=== PATIENT | female | born 1975 | race Caucasian/White ===

== ENCOUNTER → 2017-02-20 | Outpatient (CLI) | payer OTHER ==
--- NOTE | 2017-02-22 10:35 | MM ---
Reason for exam: additional evaluation requested from prior study. Last mammogram was performed 1 year ago. History: Family history of breast cancer in paternal grandmother at age 50. Reductions of both breasts, 2000. Taking hormonal contraceptives for 7 years beginning at age 32. Physical Findings: Nurse did not find any significant physical abnormalities on exam. MG 3D Diag Mammo W/Cad ANISA Bilateral CC and MLO view(s) were taken. Prior study comparison: March 02, 2016, bilateral MG 3d screening mammo w/cad. January 04, 2015, bilateral MG screening mammo w CAD. There are scattered fibroglandular densities. Stable benign calcifications. No significant new findings when compared with previous films. These results were verbally communicated with the patient and result sheet given to the patient on 02/20/17. ASSESSMENT: Incomplete: need additional imaging evaluation, BI-RAD 0 RECOMMENDATION: Ultrasound of the left breast. Manage patient on a clinical basis.
--- NOTE | 2017-02-22 10:36 | USB ---
Reason for exam: additional evaluation requested from abnormal screening. History: Family history of breast cancer in paternal grandmother at age 50. Reductions of both breasts, 2000. Taking hormonal contraceptives for 7 years beginning at age 32. US Breast LT Left breast ultrasound includes all four quadrants, the retroareolar region and axilla. Finding demonstrate no cystic or solid lesion seen. These results were verbally communicated with the patient and result sheet given to the patient on 02/20/17. ASSESSMENT: Negative, BI-RAD 1 RECOMMENDATION: Routine screening mammogram of both breasts in 1 year. Manage patient on a clinical basis.
== END | disposition home or self-care (01) ==
LOC: RADMAMWWP 09:35
PROVIDERS: ATTEND Surgery
DX: N64.4 Mastodynia (principal); N65.1 Disproportion of reconstructed breast; R92.8 Other abnormal and inconclusive findings on diagnostic imaging of breast; Z98.890 Other specified postprocedural states
CPT/HCPCS: 76641; G0204; G0279

== ENCOUNTER → 2018-03-18 | Outpatient (CLI) | payer OTHER ==
--- NOTE | 2018-03-18 12:02 | US ---
EXAMINATION TYPE: US pelvis complete transvag DATE OF EXAM: 03/18/2018 COMPARISON: NONE CLINICAL HISTORY: Z97.5 Presence of (intrauterine) contraceptive. TECHNIQUE: Transvaginal (TV) and Transabdominal (TA) . Transvaginal sonographic images of the pelv is were acquired. Transabdominal sonographic images were medically necessary to better assess the f ollowing anatomy: Uterus Date of LMP: no periods due to IUD EXAM MEASUREMENTS: Uterus: 13.8 x 8.4 x 8.7 cm Endometrial Stripe: unable to visualized due to large fibroid Right Ovary: 3.0 x 2.7 x 2.6 cm Left Ovary: 3.7 x 1.4 x 1.6 cm 1. Uterus: 8.1 x 6.6 x 7.9cm posterior uterine fibroid appears to be pushing IUD anterior, second pe dunculated fibroid measures 3.2 x 2.8 x 2.8cm 2. Endometrium: unable to visualized due to large fibroid, unable to ascertain whether IUD is in endo metrium or sitting anterior to by ultrasound 3. Right Ovary: wnl 4. Left Ovary: wnl 5. Bilateral Adnexa: wnl 6. Posterior cul-de-sac: wnl IMPRESSION: 1. Large uterine fibroid. Second smaller pedunculated uterine fibroid may be present. 2. Echogenic shadow within the anterior uterus with posterior shadowing can be compatible with the howard musa's reported IUD.
== END ==
LOC: RADUSWWP 10:32
PROVIDERS: ATTEND Obstetrics & Gynecology
DX: D25.9 Leiomyoma of uterus, unspecified (principal); Z97.5 Presence of (intrauterine) contraceptive device
CPT/HCPCS: 76830; 76856

== ENCOUNTER → 2018-04-08 | Outpatient (CLI) | payer MEDICAID ==
[2018-04-08 13:39] LABS: Basophils % (A) 0 %; Eosinophils # (A) 0.1 k/uL (0-0.7); Eosinophils % (A) 1 %; HCT 38.2 % (34.0-46.0); Lymphocytes # (A) 2.3 k/uL (1.0-4.8); Lymphocytes % (A) 20 %; MCH 27.7 pg (25.0-35.0); MCV 81.4 fL (80.0-100.0); Mean Platelet Volume 6.2; Monocytes # (A) 0.4 k/uL (0-1.0); Monocytes % (A) 3 %; Neutrophils # (A) 8.8 k/uL (1.3-7.7); Neutrophils % (A) 75 %; Platelet Count 389 k/uL (150-450); RBC 4.69 m/uL (3.80-5.40); RDW 13.2 % (11.5-15.5); WBC 11.8 k/uL (3.8-10.6)
== END | disposition home or self-care (01) ==
LOC: LABPAT 12:33
PROVIDERS: ATTEND Obstetrics & Gynecology
DX: Z01.812 Encounter for preprocedural laboratory examination (principal)
CPT/HCPCS: 36415; 85025

== ENCOUNTER 2018-04-11 06:08 | Day surgery (SDC) | payer MEDICAID, OTHER ==
[2018-04-09 09:17] VITALS: BMI 34.2
[~2018-04-11 06:08] MED LIST: Pre Op ABX Message 1 EACH MISC MISCELLANE ONE
[2018-04-11 06:42] VITALS: RESP 16
[2018-04-11] MEDS ORDERED: LACTATED RINGERS 1,000 ML IV ONE (07:01)
[2018-04-11] MEDS ORDERED: ONDANSETRON 4 MG/2 ML VIAL IVP ONE (07:03)
[2018-04-11] MEDS ORDERED: DEXAMETHASONE SOD PHOSPHATE 10 MG/ML 1 ML VIAL IV ONE (07:04)
[2018-04-11] MEDS ORDERED: MIDAZOLAM 2 MG/2 ML VIAL IV ONE ×2 (07:04)
[2018-04-11] MEDS ORDERED: KETOROLAC 30 MG/ML 1 ML VIAL ONE (07:30)
[2018-04-11] MEDS ORDERED: LIDOCAINE 1% INJ 10MG/ML (20 ML MDV) ONE (07:30)
[2018-04-11] MEDS ORDERED: fentaNYL (PF) 50 MCG/ML 2 ML AMP ONE (07:30)
[2018-04-11] MEDS ORDERED: MIDAZOLAM 2 MG/2 ML VIAL ONE (07:30)
[2018-04-11] MEDS ORDERED: PROPOFOL 10 MG/ML 20 ML VIAL IV ONE (07:30)
--- NOTE | 2018-04-11 08:13 | P.HPOB ---
History of Present Illness H&P Date: 04/11/18 Chief Complaint: Retained IUD family planning Janine is a 42-year-old female who has a Mirena IUD. The IUD has gone so far up into her uterine cavity that the strings are no longer visible and cannot be identified. Attempts were made in the office to remove it were unsuccessful. Ultrasound did verify that the IUD was in place and that she has a very large fibroid in her uterus. It is also noted that her uterus is slightly bigger than what would normally be recommended for the IUD but is controlling her menses very well and she would defer to continue with the IUD understanding there is an increased risk of failure and resultant . Past Medical History Past Medical History: Asthma Additional Past Medical History / Comment(s): seasonal allergies, menieres rt ear, exercise induced asthma, hx anemia History of Any Multi-Drug Resistant Organisms: None Reported Additional Past Surgical History / Comment(s): manjinder. breast reduction Past Anesthesia/Blood Transfusion Reactions: Postoperative Nausea & Vomiting ( PONV) Smoking Status: Never smoker - Past Family History Mother Family Medical History: No Reported History Medications and Allergies Home Medications Medication Instructions Recorded Confirmed Type Albuterol Inhaler [Ventolin Hfa 1 - 2 puff INHALATION RT-Q6H PRN 04/09/18 History Inhaler] Cetirizine HCl [Zyrtec] 10 mg PO DAILY 04/09/18 04/11/18 History L.acidoph,Paracasei, B.lactis 1 each PO DAILY 04/09/18 04/11/18 History [Probiotic] Triamterene-Hctz 37.5-25Mg 1 cap PO DAILY 04/09/18 04/11/18 History [Dyazide 37.5-25 Capsule] Vitamin B Complex 1 each PO DAILY 04/09/18 04/11/18 History Ibuprofen [Motrin] 600 mg PO Q6HR PRN #30 tab 04/11/18 Rx Allergies Allergy/AdvReac Type Severity Reaction Status Date / Time No Known Allergies Allergy Verified 04/11/18 06:59 Exam Osteopathic Statement: *. No significant issues noted on an osteopathic structural exam other than those noted in the History and Physical/Consult. Vital Signs Temp Pulse Resp BP Pulse Ox 04/11/18 06:40 99.4 F 78 16 139/73 98 Intake and Output 04/10/18 04/11/18 04/11/18 22:59 06:59 14:59 Intake Total 900 Output Total 5 Balance 895 Intake: IV 900 Output: Estimated Blood Loss 5 - OBG Physical Exam Breast: both: normal (no masses) Abdomen: bowel sounds normal, no diffuse tenderness, no bruit present, no guarding noted, no hepatomegaly, no splenomegaly, no mass Vulva: both: normal Vagina: normal moisture, no discharge Cervix: no lesion, no discharge Uterus: enlarged, nodular
--- NOTE | 2018-04-11 08:15 | P.OP ---
Date of Procedure: 04/11/18 Preoperative Diagnosis: Retained IUD with family planning Postoperative Diagnosis: Same Procedure(s) Performed: Exam under anesthesia with hysteroscopy and removal of IUD and replacement with new kyleena iud Anesthesia: MAC Surgeon: Tad Aguirre Estimated Blood Loss (ml): 2 Pathology: none sent Condition: stable Disposition: same day Operative Findings: Grossly enlarged uterus Description of Procedure: Patient was taken to the operating suite where a general anesthetic was found be adequate. She was prepped and draped in normal sterile fashion placed in dorsal lithotomy position. Initially weighted speculum was inserted into the vagina and the anterior lip cervix was identified and grasped with an Allis clamp. Cervix was then dilated. Using a long hemostat attempt made to grasp the strings however we were unable to find the strings or feel the IUD. Therefore hysteroscope was inserted due to and anterior fibroid the IUD was actually tucked behind the fibroid well to the back of the uterus, therefore once wheeled visualize it. Using a polyp forcep to go into the uterus at the correct angle and grasp and remove the IUD. Once it was removed nuclear currently IUD was placed after sounding to approximately 11 cm. All instruments were then removed following trimming of the strings 2 cm. Sponge, lap, needle counts were all correct 2. Patient was then taken to the recovery room in stable and satisfactory condition. Plan - Discharge Summary New Discharge Prescriptions: New Ibuprofen [Motrin] 600 mg PO Q6HR PRN #30 tab PRN Reason: Pain No Action Triamterene-Hctz 37.5-25Mg [Dyazide 37.5-25 Capsule] 1 cap PO DAILY Vitamin B Complex 1 each PO DAILY L.acidoph,Paracasei, B.lactis [Probiotic] 1 each PO DAILY Cetirizine HCl [Zyrtec] 10 mg PO DAILY Albuterol Inhaler [Ventolin Hfa Inhaler] 1 - 2 puff INHALATION RT-Q6H PRN PRN Reason: Dyspnea Discharge Medication List Albuterol Inhaler [Ventolin Hfa Inhaler] 1 - 2 puff INHALATION RT-Q6H PRN [History] Cetirizine HCl [Zyrtec] 10 mg PO DAILY 04/09/18 [History] L.acidoph,Paracasei, B.lactis [Probiotic] 1 each PO DAILY 04/09/18 [History] Triamterene-Hctz 37.5-25Mg [Dyazide 37.5-25 Capsule] 1 cap PO DAILY 04/09/18 [ History] Vitamin B Complex 1 each PO DAILY 04/09/18 [History] Ibuprofen [Motrin] 600 mg PO Q6HR PRN #30 tab 04/11/18 [Rx] Follow up Appointment(s)/Referral(s): Tad Aguirre DO [Doctor of Osteopathic Medicine] - 2 Weeks Activity/Diet/Wound Care/Special Instructions: Pelvic rest today and limited activity today due to anesthesia Discharge Disposition: HOME SELF-CARE
[2018-04-11 08:16] VITALS: TEMP 97.1
[2018-04-11 09:29] VITALS: BP 115/69; PULSE 60
== END 2018-04-11 09:53 | disposition home or self-care (01) ==
LOC: OR 06:08
PROVIDERS: ATTEND Obstetrics & Gynecology
DX: T83.32XA Displacement of intrauterine contraceptive device, initial encounter (principal); I10 Essential (primary) hypertension; J45.990 Exercise induced bronchospasm; Z79.899 Other long term (current) drug therapy
CPT/HCPCS: 81025; 58300; 58562; J2250; J1100; J2405; J2001; J3010; J1885; J2704

== ENCOUNTER → 2018-06-03 | Outpatient (CLI) | payer MEDICAID ==
--- NOTE | 2018-06-05 09:26 | MM ---
Reason for exam: screening (asymptomatic). Last mammogram was performed 1 year and 3 months ago. History: Family history of breast cancer in paternal grandmother at age 50. Reductions of both breasts, 2001. Taking hormonal contraceptives for 7 years beginning at age 32. Physical Findings: A clinical breast exam by your physician is recommended on an annual basis and results should be correlated with mammographic findings. MG 3D Screening Mammo W/Cad Bilateral CC and MLO view(s) were taken. Prior study comparison: February 20, 2017, bilateral MG 3d diag mammo w/cad ANISA. March 02, 2016, bilateral MG 3d screening mammo w/cad. There are scattered fibroglandular densities. No significant changes when compared with prior studies. ASSESSMENT: Benign, BI-RAD 2 RECOMMENDATION: Routine screening mammogram of both breasts in 1 year.
== END | disposition home or self-care (01) ==
LOC: RADMAMWWP 11:14
PROVIDERS: ATTEND Obstetrics & Gynecology
DX: Z12.31 Encounter for screening mammogram for malignant neoplasm of breast (principal)
CPT/HCPCS: 77063; 77067

== ENCOUNTER → 2018-09-03 | Outpatient (CLI) | payer MEDICAID ==
--- NOTE | 2018-09-03 15:51 | US ---
EXAMINATION TYPE: US pelvis complete transvag DATE OF EXAM: 09/03/2018 COMPARISON: US 03/18/2018 CLINICAL HISTORY: Z97.5 IUD PLACEMENT,N92.6 IRREG MENSES. Patient had an IUD surgically removed in [facility] due to improper location due to fibroid TECHNIQUE: . Transabdominal sonographic images of the pelvis were acquired. Transvaginal sonographi c images were medically necessary to better assess the following anatomy: Endometrium Date of LMP: About 2.5 weeks ago EXAM MEASUREMENTS: Uterus: 10.0 x 7.8 x 8.1 cm Endometrial Stripe: Not visualized due to large fibroid Right Ovary: 2.7 x 1.2 x 2.0 cm Left Ovary: 3.7 x 2.8 x 4.0 cm 1. Uterus: Anteverted, multiple nabothian cysts visualized. Two fibroids visualized. The largest m easuring 9.1 x 7.0 x 7.3 cm. IUD is visualized anterior to the largest fibroid and appears to be in t he myometrium. This is difficult to evaluate transvaginally due to fibroid. 2. Endometrium: Not visualized 3. Right Ovary: wnl 4. Left Ovary: Cystic area visualized measuring 1.5 x 1.5 x 1.8 cm 5. Bilateral Adnexa: wnl 6. Posterior cul-de-sac: wnl IMPRESSION: 1. IUD within the endometrial canal. 2. Large posterior uterine fibroid.
== END | disposition home or self-care (01) ==
LOC: RADUSWWP 12:47
PROVIDERS: ATTEND Obstetrics & Gynecology
DX: D25.9 Leiomyoma of uterus, unspecified (principal); Z97.5 Presence of (intrauterine) contraceptive device
CPT/HCPCS: 76830; 76856

== ENCOUNTER → 2020-04-29 | Outpatient (CLI) | payer MEDICAID ==
[2020-04-29 09:29] LABS: Basophils % (A) 1 %; Eosinophils # (A) 0.2 k/uL (0-0.7); Eosinophils % (A) 2 %; HCT 43.1 % (34.0-46.0); Lymphocytes % (A) 21 %; MCH 27.3 pg (25.0-35.0); MCHC 32.5 g/dL (31.0-37.0); MCV 83.9 fL (80.0-100.0); Mean Platelet Volume 6.4; Monocytes # (A) 0.4 k/uL (0-1.0); Monocytes % (A) 4 %; Neutrophils # (A) 6.9 k/uL (1.3-7.7); Neutrophils % (A) 71 %; Platelet Count 365 k/uL (150-450); RBC 5.13 m/uL (3.80-5.40); RDW 12.8 % (11.5-15.5); WBC 9.7 k/uL (3.8-10.6)
[2020-04-29 17:10] LABS: African American GFR (CKD) 103.2 (60.0-200.0); Albumin 4.4 g/dL (3.80-4.90); Albumin/Globulin Ratio 1.57 (1.60-3.17); Anion Gap 8.5 mmol/L (4.00-12.00); BUN/Creat Ratio 13.75 Ratio (12.00-20.00); Calcium 9.9 mg/dL (8.7-10.3); Carbon Dioxide 26.5 mmol/L (21.6-31.8); Chol/HDL Ratio 2.87; Globulin 2.8 g/dL (1.6-3.3); LDL Cholesterol,Calculated 88.2 mg/dL (0.0-131.0); Potassium 4.2 mmol/L (3.5-5.5); Total Bilirubin 0.6 mg/dL (0.2-1.2); Total Protein 7.2 g/dL (6.2-8.2); Uric Acid 6.8 mg/dL (2.9-7.7); VLDL Calculation 25.8 mg/dL (5.00-40.00)
== END | disposition home or self-care (01) ==
LOC: LABWHC1 08:43
PROVIDERS: ATTEND Otolaryngology
DX: Z00.00 Encounter for general adult medical examination without abnormal findings (principal); H90.3 Sensorineural hearing loss, bilateral; H81.03 Meniere's disease, bilateral
CPT/HCPCS: 36415; 80053; 80061; 82306; 84550; 85025

== ENCOUNTER → 2020-09-17 | Outpatient (CLI) | payer MEDICAID ==
--- NOTE | 2020-09-20 14:00 | MM ---
Reason for exam: screening (asymptomatic). Last mammogram was performed 2 years and 3 months ago. History: Family history of breast cancer in paternal grandmother at age 50. Reductions of both breasts, 2001. Taking hormonal contraceptives for 7 years beginning at age 32. Physical Findings: A clinical breast exam by your physician is recommended on an annual basis and results should be correlated with mammographic findings. MG 3D Screening Mammo W/Cad Bilateral CC and MLO view(s) were taken. Prior study comparison: June 03, 2018, bilateral MG 3d screening mammo w/cad. February 20, 2017, bilateral MG 3d diag mammo w/cad ANISA. There are scattered fibroglandular densities. There are benign appearing regional, round calcifications bilaterally. Asymmetric breast tissue left axilla, stable. There is no discrete abnormality. ASSESSMENT: Benign, BI-RAD 2 RECOMMENDATION: Routine screening mammogram of both breasts in 1 year.
== END | disposition home or self-care (01) ==
LOC: RADMAMWWP 11:41
PROVIDERS: ATTEND Family Medicine
DX: Z12.31 Encounter for screening mammogram for malignant neoplasm of breast (principal)
CPT/HCPCS: 77063; 77067

== ENCOUNTER → 2020-11-17 | Outpatient (CLI) | payer MEDICAID ==
[2020-11-17 12:36] LABS: C Reactive Protein 0.7 mg/dL (0.0-0.8)
== END | disposition home or self-care (01) ==
LOC: LABWHC1 07:19
PROVIDERS: ATTEND Family Medicine
DX: M25.549 Pain in joints of unspecified hand (principal)
CPT/HCPCS: 36415; 85652; 86038; 86140; 86431

== ENCOUNTER → 2021-03-16 | Outpatient (CLI) | payer MEDICAID ==
[2021-03-16 14:40] VITALS: BMI 32.9
== END ==
LOC: DBWHC3 09:57
PROVIDERS: ATTEND Family Medicine
DX: E66.3 Overweight (principal); Z68.33 Body mass index [BMI] 33.0-33.9, adult
CPT/HCPCS: 97802

== ENCOUNTER → 2021-07-06 | Outpatient (CLI) | payer MEDICAID ==
[2021-07-06 10:48] LABS: HCT 41.5 % (37.2-46.3); HGB 13.4 g/dL (12.0-15.0); MCH 27.2 pg (27.0-32.0); MCHC 32.3 g/dL (32.0-37.0); MCV 84.2 fL (80.0-97.0); Mean Platelet Volume 8.9 fL (9.5-12.2); Platelet Count 374 X 10*3/uL (140-440); RBC 4.93 X 10*6/uL (4.10-5.20); RDW 12.4 % (11.5-14.5); WBC 8.14 X 10*3/uL (4.50-10.00)
[2021-07-07 14:54] LABS: Albumin 4.5 g/dL (3.8-4.9); Albumin/Globulin Ratio 1.65 (1.60-3.17); Anion Gap 14.8 mmol/L (4.00-12.00); BUN/Creat Ratio 32.73 Ratio (12.00-20.00); Blood Urea Nitrogen 16.2 mg/dL (9.0-27.0); Calcium 9.2 mg/dL (8.7-10.3); Carbon Dioxide 22.3 mmol/L (21.6-31.8); Chol/HDL Ratio 2.72 Ratio; Globulin 2.7 g/dL (1.6-3.3); Non-African American GFR(CKD) 116.5 (60.0-200.0); Potassium 4.4 mmol/L (3.5-5.5); Total Bilirubin 0.4 mg/dL (0.30-1.20); Total Protein 7.2 g/dL (6.2-8.2)
== END | disposition home or self-care (01) ==
LOC: LABWHC1 07:31
PROVIDERS: ATTEND Family Medicine
DX: Z00.01 Encounter for general adult medical examination with abnormal findings (principal); E55.9 Vitamin D deficiency, unspecified
CPT/HCPCS: 36415; 80053; 80061; 82306; 85027

== ENCOUNTER → 2021-09-19 | Outpatient (CLI) | payer MEDICAID ==
[2021-09-19 18:48] LABS: Basophils # (A) 0.03 X 10*3/uL (0.00-0.10); Basophils % (A) 0.3 %; Eosinophils # (A) 0.05 X 10*3/uL (0.04-0.35); Eosinophils % (A) 0.5 %; HCT 42.1 % (37.2-46.3); Lymphocytes # (A) 0.98 X 10*3/uL (0.90-5.00); Lymphocytes % (A) 10.2 %; MCH 26.9 pg (27.0-32.0); MCHC 30.9 g/dL (32.0-37.0); Mean Platelet Volume 9.2 fL (9.5-12.2); Monocytes # (A) 0.54 X 10*3/uL (0.20-1.00); Monocytes % (A) 5.6 %; Neutrophils # (A) 7.98 X 10*3/uL (1.80-7.70); Neutrophils % (A) 83.1 %; Platelet Count 331 X 10*3/uL (140-440); RBC 4.84 X 10*6/uL (4.10-5.20); RDW 12.7 % (11.5-14.5); WBC 9.61 X 10*3/uL (4.50-10.00)
[2021-09-19 21:40] LABS: Erythrocyte Sedimentation Rate 26 mm/Hr (0-20)
[2021-09-20 05:18] LABS: BUN/Creat Ratio 23.77 Ratio (12.00-20.00); Globulin 2.9 g/dL (1.6-3.3)
[2021-09-20 05:19] LABS: African American GFR (CKD) 114.1 (60.0-200.0); Albumin 4.4 g/dL (3.8-4.9); Albumin/Globulin Ratio 1.52 (1.60-3.17); Anion Gap 15.5 mmol/L (10.00-18.00); Blood Urea Nitrogen 17.4 mg/dL (9.0-27.0); C Reactive Protein 1.1 mg/dL (0.00-0.80); Calcium 9.7 mg/dL (8.7-10.3); Carbon Dioxide 20.1 mmol/L (20.0-27.5); Non-African American GFR(CKD) 98.4 (60.0-200.0); Potassium 4.1 mmol/L (3.5-5.5); Total Bilirubin 0.3 mg/dL (0.30-1.20); Total Protein 7.3 g/dL (6.2-8.2)
[2021-09-20 09:25] LABS: Angiotensin-1 Converting Enz. 40 U/L (8-52)
== END | disposition home or self-care (01) ==
LOC: LABWHC1 11:40
PROVIDERS: ATTEND Internal Medicine Rheumatology
DX: M79.643 Pain in unspecified hand (principal); M25.539 Pain in unspecified wrist; M25.569 Pain in unspecified knee
CPT/HCPCS: 36415; 80053; 82164; 82550; 83520; 85025; 85652; 86140; 86747; 86803

== ENCOUNTER → 2021-09-19 | Outpatient (CLI) | payer MEDICAID ==
--- NOTE | 2021-09-21 12:02 | MM ---
Reason for exam: screening (asymptomatic). Last mammogram was performed 1 year ago. History: Family history of breast cancer in paternal grandmother at age 50. Reductions of both breasts, 2001. Taking hormonal contraceptives for 7 years beginning at age 32. Physical Findings: A clinical breast exam by your physician is recommended on an annual basis and results should be correlated with mammographic findings. MG 3D Screening Mammo W/Cad Bilateral CC and MLO view(s) were taken. XCCL view(s) were taken of the left breast. Prior study comparison: September 17, 2020, bilateral MG 3d screening mammo w/cad. June 03, 2018, bilateral MG 3d screening mammo w/cad. There are scattered fibroglandular densities. Dermal calcifications on the right are unchanged. No significant changes when compared with prior studies. ASSESSMENT: Benign, BI-RAD 2 RECOMMENDATION: Routine screening mammogram of both breasts in 1 year.
== END | disposition home or self-care (01) ==
LOC: RADMAMWWP 11:12
PROVIDERS: ATTEND Obstetrics & Gynecology
DX: Z12.31 Encounter for screening mammogram for malignant neoplasm of breast (principal); Z80.3 Family history of malignant neoplasm of breast
CPT/HCPCS: 77063; 77067

== ENCOUNTER → 2022-05-16 | Outpatient (CLI) | payer MEDICAID ==
[2022-05-16 10:53] LABS: HGB 12.6 g/dL (12.0-15.0); MCHC 32.3 g/dL (32.0-37.0); MCV 83.7 fL (80.0-97.0); Mean Platelet Volume 9.4 fL (9.5-12.2); NRBC Per 100 WBC 0 /100 WBCS (0.0-0.0); Platelet Count 428 X 10*3/uL (140-440); RBC 4.66 X 10*6/uL (4.10-5.20); RDW 12.8 % (11.5-14.5); WBC 9.74 X 10*3/uL (4.50-10.00)
[2022-05-16 15:13] LABS: ALT 18 U/L (8-44); AST 26 U/L (13-35); African American GFR (CKD) 118.8 (60.0-200.0); Albumin 4.2 g/dL (3.8-4.9); Albumin/Globulin Ratio 1.38 (1.60-3.17); Alkaline Phosphatase 82 U/L (41-126); BUN/Creat Ratio 15.91 Ratio (12.00-20.00); Blood Urea Nitrogen 11.2 mg/dL (9.0-27.0); Calcium 9.3 mg/dL (8.7-10.3); Carbon Dioxide 25.7 mmol/L (20.0-27.5); Chloride 102 mmol/L (96-109); Chol/HDL Ratio 2.45 Ratio; Glucose 83 mg/dL (70-110); Non-African American GFR(CKD) 102.5 (60.0-200.0); Potassium 3.7 mmol/L (3.5-5.5); Sodium 140 mmol/L (135-145); Total Protein 7.2 g/dL (6.2-8.2)
== END | disposition home or self-care (01) ==
LOC: LABWHC1 08:10
PROVIDERS: ATTEND Family Medicine
DX: Z00.01 Encounter for general adult medical examination with abnormal findings (principal); E55.9 Vitamin D deficiency, unspecified; R53.83 Other fatigue
CPT/HCPCS: 36415; 80053; 80061; 82306; 84443; 85027

== ENCOUNTER → 2022-09-20 | Outpatient (CLI) | payer MEDICAID ==
--- NOTE | 2022-09-21 08:29 | MM ---
Reason for Exam: Screening (asymptomatic). Last screening mammogram was performed 12 month(s) ago. Patient History: Menarche at age 11. First Full-Term at age 29. Late child-bearing (after 30). Perimenopausal. Currently using Hormonal Contraceptives, beginning at age 32 for 7 years. 2000, Bilateral Reduction. Paternal grandmother had breast cancer, age 50. Risk Values: Sandra 5 year model risk: 1.2%. NCI Lifetime model risk: 12.7%. Prior Study Comparison: 06/03/2018 Bilateral Screening Mammogram, [facility]. 09/17/2020 Bilateral Screening Mammogram, [facility]. 09/19/2021 Bilateral Screening Mammogram, [facility]. Tissue Density: There are scattered fibroglandular densities. Findings: Analyzed By CAD. There is no suspicious group of microcalcifications or new suspicious mass in either breast. Overall Assessment: Negative, BI-RAD 1 Management: Screening Mammogram of both breasts in 1 year. A clinical breast exam by your physician is recommended on an annual basis and results should be correlated with mammographic findings. [facility] will attempt to contact patient to return for supplemental views and ultrasound if indicated. Electronically signed and approved by: Maik Crandall DO
== END | disposition home or self-care (01) ==
LOC: RADMAMWWP 10:56
PROVIDERS: ATTEND Obstetrics & Gynecology
DX: Z12.31 Encounter for screening mammogram for malignant neoplasm of breast (principal); Z80.3 Family history of malignant neoplasm of breast
CPT/HCPCS: 77063; 77067

== ENCOUNTER → 2023-06-14 | Outpatient (CLI) | payer MEDICAID ==
[2023-06-14 16:20] LABS: HCT 43.7 % (37.2-46.3); HGB 13.8 d/dL (12.0-15.0); MCH 26.6 pg (27.0-32.0); MCHC 31.6 d/dL (32.0-37.0); MCV 84.2 FL (80.0-97.0); NRBC Per 100 WBC 0 X 10*3/uL (0.00-0.01); Platelet Count 412 X 10*3/uL (140-440); RBC 5.19 X 10*6/uL (4.10-5.20); RDW 12.5 % (11.5-14.5); WBC 9.37 X 10*3/uL (4.50-10.00)
[2023-06-14 16:47] LABS: ALT 12 U/L (8-44); AST 22 U/L (13-35); Albumin 4.6 d/dL (3.8-4.9); Albumin/Globulin Ratio 1.64 Ratio (1.60-3.17); Alkaline Phosphatase 86 U/L (41-126); BUN/Creat Ratio 16.25 Ratio (12.00-20.00); Calcium 9.9 mg/dL (8.7-10.3); Carbon Dioxide 27.1 mmol/L (21.6-31.8); Chloride 99 mmol/L (96-109); Chol/HDL Ratio 2.91 Ratio; Globulin 2.8 d/dL (1.6-3.3); Glucose 83 mg/dL (70-110); LDL Cholesterol,Calculated 120.3 mg/dL (0.0-131.0); Potassium 4.5 mmol/L (3.5-5.5); Sodium 138 mmol/L (135-145); Total Bilirubin 0.6 mg/dL (0.3-1.2); Total Protein 7.4 d/dL (6.2-8.2)
== END | disposition home or self-care (01) ==
LOC: LABWHC1 08:03
PROVIDERS: ATTEND Family Medicine
DX: Z00.01 Encounter for general adult medical examination with abnormal findings (principal); E55.9 Vitamin D deficiency, unspecified
CPT/HCPCS: 36415; 80053; 80061; 82306; 85027

== ENCOUNTER → 2023-09-28 | Outpatient (CLI) | payer MEDICAID ==
--- NOTE | 2023-10-03 11:13 | MM ---
Reason for Exam: Screening (asymptomatic). Last screening mammogram was performed 12 month(s) ago. Patient History: Menarche at age 11. First Full-Term at age 29. Late child-bearing (after 30). Perimenopausal. Currently using Hormonal Contraceptives, beginning at age 32 for 7 years. 2000, Bilateral Reduction. Paternal grandmother had breast cancer, age 50. Risk Values: Sandra 5 year model risk: 1.3%. NCI Lifetime model risk: 12.5%. Prior Study Comparison: 09/17/2020 Bilateral Screening Mammogram, [facility]. 09/19/2021 Bilateral Screening Mammogram, [facility]. 09/20/2022 Bilateral MG 3D screening mammo w/cad, [facility]. Tissue Density: The breast tissue is almost entirely fat. Findings: Analyzed By CAD. There is no suspicious group of microcalcifications or new suspicious mass. Benign-appearing calcifications bilaterally. Overall Assessment: Benign, BI-RAD 2 Management: Screening Mammogram of both breasts in [address] [facility] will attempt to contact patient to return for supplemental views and ultrasound if indicated. Patient should continue monthly self-breast exams. A clinical breast exam by your physician is recommended on an annual basis. This exam should not preclude additional follow-up of suspicious palpable abnormalities. Note on Sandra scores and lifetime risk: 1. A Sandra score greater than 3% is considered moderate risk. If this is the case, consider specialist referral to assess eligibility for a risk reducing agent. 2. If overall lifetime risk for the development of breast cancer is 20% or higher, the patient may qualify for future screening with alternating mammogram and breast MRI. Electronically signed and approved by: Maik Crandall DO
== END | disposition home or self-care (01) ==
LOC: RADMAMWWP 14:45
PROVIDERS: ATTEND Obstetrics & Gynecology
DX: Z12.31 Encounter for screening mammogram for malignant neoplasm of breast (principal); Z80.3 Family history of malignant neoplasm of breast
CPT/HCPCS: 77063; 77067

== ENCOUNTER → 2024-06-20 | Day surgery (SDC) | payer MEDICAID ==
[~2024-06-20] MED LIST changes: +LIDOCAINE 1% INJ 10MG/ML (20 ML MDV) ONE; +PROPOFOL 10 MG/ML 20 ML VIAL IV ONE; -Pre Op ABX Message 1 EACH MISC MISCELLANE ONE
[2024-06-20 12:48] VITALS: RESP 16; TEMP 97.6
[2024-06-20] MEDS: IV FLUID CONTINUATION 1,000 ML IV ONE (12:49)
[2024-06-20] MEDS: LACTATED RINGERS 1,000 ML IV SCH (12:53)
--- NOTE | 2024-06-20 13:39 | P.PCN ---
Date of Procedure: 06/20/24 Procedure(s) Performed: BRIEF HISTORY: Patient is a 48-year-old pleasant white female scheduled for an elective colonoscopy as a part of screening for colon cancer. PROCEDURE PERFORMED: Colonoscopy. PREOPERATIVE DIAGNOSIS: Screening for colon cancer. IV sedation per Anesthesia. PROCEDURE: After informed consent was obtained, the patient, was brought into the endoscopy unit. IV sedation was administered by Anesthesia under continuous monitoring. Digital rectal examination was normal. Initially the Olympus CF-160 flexible video colonoscope was then inserted in the rectum, gradually advanced into the cecum without any difficulty. Careful examination was performed as the scope was gradually being withdrawn. Ileocecal valve and the appendiceal orifice were visualized and appeared normal. Prep was good.. Mucosa of the cecum, ascending colon, transverse colon, descending colon, sigmoid colon, and rectum appeared normal. Retroflexion was performed in the rectum and no lesions were seen. The patient tolerated the procedure well. IMPRESSION: Normal-appearing colon from rectum to cecum with no evidence of colorectal neoplasia. RECOMMENDATIONS: Findings of this examination were discussed with the patient as well as her family. She was to have repeat screening colonoscopy in 10 years.
[2024-06-20 13:56] VITALS: BP 100/65; PULSE 60
== END ==
LOC: ORWHC2ENDO 11:15
PROVIDERS: ATTEND Internal Medicine Gastroenterology
DX: Z12.11 Encounter for screening for malignant neoplasm of colon (principal); J45.909 Unspecified asthma, uncomplicated; F41.8 Other specified anxiety disorders; Z79.899 Other long term (current) drug therapy; Z98.890 Other specified postprocedural states
CPT/HCPCS: 81025; J2001; J2704; G0105; 45378

== ENCOUNTER → 2024-06-25 | Outpatient (CLI) | payer MEDICAID ==
[2024-06-25 15:40] LABS: HCT 39.3 % (37.2-46.3); HGB 12.9 g/dL (12.0-15.0); MCH 27.9 pg (27.0-32.0); MCHC 32.8 g/dL (32.0-37.0); MCV 84.9 FL (80.0-97.0); Mean Platelet Volume 9.7 FL (9.5-12.2); NRBC Per 100 WBC 0 X 10*3/uL (0.00-0.01); Platelet Count 382 X 10*3/uL (140-440); RBC 4.63 X 10*6/uL (4.10-5.20); RDW 12.6 % (11.5-14.5); WBC 7.97 X 10*3/uL (4.50-10.00)
[2024-06-25 15:44] LABS: ALT 11 U/L (8-44); AST 17 U/L (13-35); Albumin 4.3 g/dL (3.8-4.9); Albumin/Globulin Ratio 1.72 Ratio (1.60-3.17); Alkaline Phosphatase 73 U/L (41-126); BUN/Creat Ratio 16.43 Ratio (12.00-20.00); Blood Urea Nitrogen 11.5 mg/dL (9.0-27.0); Calcium 9.3 mg/dL (8.7-10.3); Carbon Dioxide 21.7 mmol/L (21.6-31.8); Chloride 104 mmol/L (96-109); Chol/HDL Ratio 3.14 Ratio; Globulin 2.5 g/dL (1.6-3.3); Glucose 88 mg/dL (70-110); LDL Cholesterol,Calculated 111.6 mg/dL (0.0-131.0); Potassium 3.8 mmol/L (3.5-5.5); Sodium 138 mmol/L (135-145); Total Bilirubin 0.4 mg/dL (0.3-1.2); Total Protein 6.8 g/dL (6.2-8.2)
== END | disposition home or self-care (01) ==
LOC: LABWHC1 08:47
PROVIDERS: ATTEND Family Medicine
DX: Z00.01 Encounter for general adult medical examination with abnormal findings (principal); E55.9 Vitamin D deficiency, unspecified
CPT/HCPCS: 36415; 80053; 80061; 82306; 85027

== ENCOUNTER → 2024-10-30 | Outpatient (CLI) | payer MEDICAID ==
--- NOTE | 2024-10-30 08:28 | MM ---
Reason for Exam: Screening (asymptomatic). Last mammogram was performed 1 year(s) and 1 month(s) ago. Patient History: Menarche at age 11. First Full-Term at age 29. Late child-bearing (after 30). Perimenopausal. Currently using Hormonal Contraceptives, beginning at age 32 for 7 years. 2000, Bilateral Reduction. Paternal grandmother had breast cancer, age 50. Risk Values: Sandra 5 year model risk: 1.3%. NCI Lifetime model risk: 12.3%. Prior Study Comparison: 09/19/2021 Bilateral Screening Mammogram, [facility]. 09/20/2022 Bilateral MG 3D screening mammo w/cad, [facility]. 09/28/2023 Bilateral MG 3D screening mammo w/cad, [facility]. Tissue Density: There are scattered areas of fibroglandular density. Findings: Analyzed By CAD. Benign dermal calcifications redemonstrated on both sides. There is no suspicious group of microcalcifications or new suspicious mass in either breast. Overall Assessment: Benign, BI-RAD 2 Management: Screening Mammogram of both breasts in 1 year. Patient should continue monthly self-breast exams. A clinical breast exam by your physician is recommended on an annual basis. This exam should not preclude additional follow-up of suspicious palpable abnormalities. Note on Sandra scores and lifetime risk: 1. A Sandra score greater than 3% is considered moderate risk. If this is the case, consider specialist referral to assess eligibility for a risk reducing agent. 2. If overall lifetime risk for the development of breast cancer is 20% or higher, the patient may qualify for future screening with alternating mammogram and breast MRI. [facility], , 10/30/2024 8:25 AM. Electronically signed and approved by: Anabella Hilario M.D. Radiologist
== END | disposition home or self-care (01) ==
LOC: RADMAMWWP 08:03
PROVIDERS: ATTEND Obstetrics & Gynecology
DX: Z12.31 Encounter for screening mammogram for malignant neoplasm of breast (principal); Z80.3 Family history of malignant neoplasm of breast; R92.323 Mammographic fibroglandular density, bilateral breasts
CPT/HCPCS: 77063; 77067

== ENCOUNTER → 2025-03-26 | Outpatient (CLI) | payer MEDICAID ==
[2025-03-26 15:08] LABS: Basophils # (A) 0.04 X 10*3/uL (0.00-0.10); Basophils % (A) 0.7 %; Eosinophils # (A) 0.09 X 10*3/uL (0.04-0.35); Eosinophils % (A) 1.5 %; HCT 41.6 % (37.2-46.3); HGB 13.4 g/dL (12.0-15.0); Lymphocytes % (A) 29.5 %; MCH 27.5 pg (27.0-32.0); MCHC 32.2 g/dL (32.0-37.0); MCV 85.2 FL (80.0-97.0); Mean Platelet Volume 8.9 FL (9.5-12.2); Monocytes # (A) 0.38 X 10*3/uL (0.20-1.00); Monocytes % (A) 6.2 %; NRBC Per 100 WBC 0 X 10*3/uL (0.00-0.01); Neutrophils # (A) 3.77 X 10*3/uL (1.80-7.70); Neutrophils % (A) 61.6 %; Platelet Count 360 X 10*3/uL (140-440); RBC 4.88 X 10*6/uL (4.10-5.20); RDW 12.8 % (11.5-14.5); WBC 6.11 X 10*3/uL (4.50-10.00)
[2025-03-26 15:31] LABS: Blood Urea Nitrogen 10.2 mg/dL (9.0-27.0); Chol/HDL Ratio 2.45 Ratio; Glucose 83 mg/dL (70-110); LDL Cholesterol,Calculated 101.9 mg/dL (0.0-131.0); Potassium 3.9 mmol/L (3.5-5.5); Sodium 141 mmol/L (135-145)
== END | disposition home or self-care (01) ==
LOC: LABWHC1 09:26
PROVIDERS: ATTEND Otolaryngology
DX: H90.3 Sensorineural hearing loss, bilateral (principal); H81.03 Meniere's disease, bilateral
CPT/HCPCS: 36415; 80061; 82565; 82947; 84132; 84295; 84520; 84550; 85025